=== PATIENT | male | born 1960 | race Caucasian/White ===

== ENCOUNTER 2021-10-04 18:23 | Emergency (ER) | payer OTHER, BC ==
[2021-10-04] MEDS ORDERED: Diphtheria,Pertussis(Acell),Tetanus Vaccine 0.5 ML Syringe IM ONE (18:32)
[2021-10-04] MEDS ORDERED: Lidocaine 1% 10 ML MDV INJECT ONE (18:47)
[2021-10-04 18:53] VITALS: BP 153/103; PULSE 88
[2021-10-04] MEDS ORDERED: Cephalexin 500 MG Cap PO ONE (19:56)
== END 2021-10-04 20:00 | disposition home or self-care (01) ==
LOC: JD.ED 18:23
DX: S01.01XA Laceration without foreign body of scalp, initial encounter (principal); J44.9 Chronic obstructive pulmonary disease, unspecified; Z23 Encounter for immunization; V29.9XXA Motorcycle rider (driver) (passenger) injured in unspecified traffic accident, initial encounter
CPT/HCPCS: 12002; 70450; 70450-26; 90471; 90715; 99284-25

== ENCOUNTER 2022-11-21 15:29 | Emergency (ER) | payer SELFPAY ==
[2022-11-21] MEDS ORDERED: Acetaminophen/HYDROcodone 325-5 MG Tab PO ONE (15:56)
[2022-11-21 16:30] LABS: BASOPHILS ABSOLUTE AUTO 0.03 K/mm3 (0.01-0.08); BASOPHILS PERCENT AUTO 0.4 % (0.1-1.2); EOSINOPHILS ABSOLUTE AUTO 0.14 K/mm3 (0.04-0.54); EOSINOPHILS PERCENT AUTO 1.8 (0.8-7.0); HEMATOCRIT 44.3 % (40.1-51.0); HEMOGLOBIN 15.1 gm/dl (13.7-17.5); IMMATURE GRAN ABSOLUTE AUTO 0.03 K/mm3 (0.00-0.10); IMMATURE GRAN PERCENT AUTO 0.4 % (<=1.0); LYMPHOCYTES ABSOLUTE AUTO 1.96 K/mm3 (1.32-3.57); MEAN CORPUSCULAR HEMOGLOBIN 31.8 pg (25.7-32.2); MEAN CORPUSCULAR HGB CONC 34.1 g/dl (32.2-35.5); MEAN CORPUSCULAR VOLUME 93.3 fl (79.0-92.2); MONOCYTES ABSOLUTE AUTO 0.63 K/mm3 (0.30-0.82); NEUTROPHILS ABSOLUTE AUTO 5.05 K/mm3 (1.78-5.38); NEUTROPHILS PERCENT AUTO 64.4 % (34.0-67.9); PLATELET COUNT,PLT 298 K/mm3 (163-337); RED BLOOD CELL COUNT 4.75 M/mm3 (4.63-6.08); WHITE BLOOD CELL COUNT,WBC 7.84 K/mm3 (4.23-9.07)
[2022-11-21 16:53] LABS: ALBUMIN 3.8 g/dl (3.4-5.0); ANION GAP 14.8 (5-15); BILIRUBIN TOTAL 0.7 mg/dL (0.2-1.0); BUN/CREATININE RATIO 14.5 (14-18); C-REACTIVE PROTEIN 0.7 mg/dL (<1.0); CALCIUM 9.8 mg/dL (8.5-10.1); CREATININE 1.1 mg/dL (0.7-1.3); EST CRCL DRUG DOSING (CG) 83.22 mL/min; POTASSIUM,K 3.8 mEq/L (3.5-5.1); PROTEIN TOTAL,TP 7.6 g/dl (6.4-8.2)
[2022-11-21 17:33] VITALS: BP 142/102; PULSE 78
== END 2022-11-21 17:30 | disposition home or self-care (01) ==
LOC: JD.ED 15:29
DX: S92.011A Displaced fracture of body of right calcaneus, initial encounter for closed fracture (principal); F17.210 Nicotine dependence, cigarettes, uncomplicated; J44.9 Chronic obstructive pulmonary disease, unspecified; Z79.899 Other long term (current) drug therapy; W08.XXXA Fall from other furniture, initial encounter
CPT/HCPCS: 36415; 80053; 85025; 86140; 99283; A9270